=== PATIENT | male | born 1955 | race Caucasian/White ===

== ENCOUNTER → 2018-05-06 | Outpatient (CLI) | payer BC ==
[~2018-05-06] MED LIST: GADOBUTROL 10 ML VIAL IVP ONE
== END ==
LOC: FIMAGING 11:54
PROVIDERS: ATTEND Physician Assistant Medical
DX: G24.9 Dystonia, unspecified (principal); M53.2X2 Spinal instabilities, cervical region; R26.9 Unspecified abnormalities of gait and mobility; M50.31 Other cervical disc degeneration, high cervical region; M48.02 Spinal stenosis, cervical region; G95.19 Other vascular myelopathies
CPT/HCPCS: A9585

== ENCOUNTER → 2018-06-19 | Outpatient (CLI) | payer BC | LOC: CIMAGING 11:20 | PROVIDERS: ATTEND Physician Assistant Medical | DX: M48.02 Spinal stenosis, cervical region (principal) | CPT/HCPCS: 72125-PO ==